=== PATIENT | female | born 1985 | race Caucasian/White ===

== ENCOUNTER 2020-08-05 11:42 | Emergency (ER) | payer MEDICAID ==
[~2020-08-05] VITALS: Ht 160 cm; Wt 114.9 kg
[~2020-08-05 11:42] MED LIST: OLAN2.5T3 PO
[2020-08-05 11:48] VITALS: BP 117/67
[2020-08-05] MEDS ORDERED: bacitracin 15gm ointment TP ONE (12:10)
== END 2020-08-05 12:14 | disposition home or self-care (01) ==
LOC: ER 11:42
DX: S20.312A Abrasion of left front wall of thorax, initial encounter (principal); Z79.899 Other long term (current) drug therapy; V87.7XXA Person injured in collision between other specified motor vehicles (traffic), initial encounter; Y93.89 Activity, other specified; Y92.488 Other paved roadways as the place of occurrence of the external cause; Y99.8 Other external cause status
CPT/HCPCS: 99283

== ENCOUNTER 2025-03-25 16:17 | Emergency (ER) | payer MEDICAID ==
[~2025-03-25] VITALS: Ht 160 cm; Wt 132.6 kg
[2025-03-25 16:28] VITALS: BP 175/105
[2025-03-25] MEDS ORDERED: BENZ1TAB78 PO ×2 (16:48→16:52)
--- NOTE | 2025-03-25 16:53 | ELECTROCARDIOGRAPH REPORT ---
[facility] Test Date: 2025-03-25 Test Time: 16:51:27 Pat Name: AMANDA VINCENT Department: EMERGENCY ROOM Patient ID: [facility]-[id number] Room: Gender: F Hospitalist Program Director: FAITH : 1985 Requested By: ANYI LARES Order Number: [id number] Reading MD: Dr. David Lainez Measurements Intervals [place] Rate: 127 P: 4 UT: 155 QRS: -22 QRSD: 87 T: 8 QT: 292 QTc: 425 Interpretive Statements Sinus tachycardia Borderline left axis deviation Low voltage, precordial leads Electronically Signed On 03-25-2025 18:23:[address] David Lainez Please click the below link to view image of tracing.
[2025-03-25] MEDS: benztropine 1mg tablet PO ONE (16:55)
--- NOTE | 2025-03-25 16:58 | Physician Documentation ---
HPI ~ General Chief Complaint: Medication Refill Stated Complaint: MED REFILL Time Seen by MD: 16:40 OK to notify your PCP?: Yes Primary Medical Doctor: [email or web address] Source: patient Mode of Arrival: POV Exam Limitations: no limitations History of Present Illness HPI Comments Requesting refill of benztropine. She takes it 1 mg twice daily. Presents with her mother. No medical concerns for today. Reports is feeling anxious from the car ride. Medication Reconciliation Allergies: Coded Allergies: No Known Allergies (Unverified , 03/25/25) Scheduled Benztropine Mesylate (Benztropine Mesylate), 1 TAB PO BID Olanzapine* (Zyprexa*), 5 MG PO DAILY, (Reported) Past Medical History Past Medical History: *PSYCH* Past Surgical History: no surgical history Alcohol Use: None Drug Use: none Review of Systems All Other Systems at this time: Reviewed and Negative Physical Exam Physical Exam Vital Signs: RN Vital Signs have been reviewed: Yes, Temperature: 98.9, Source: Temporal, Heart Rate: 150, Respiratory Rate: 18, BP: 175/105, Pulse Oximetry: 94, Weight: 132.600 Pulse Oximetry Reflects: adequate oxygenation Physical Exam General: Alert, no distress. HEENT: No injection, moist mucous membranes. Neck: Full range of motion. Respiratory: No respiratory distress, equal chest rise and fall. Chest: No accessory muscle use. Cardiovascular: Regular rate and rhythm. Gastrointestinal: Nondistended. Extremities: Normal range of motion, no deformity. Neurologic: Oriented x4. Psychiatric: Normal mood and affect. Skin: Normal color, warm and dry. Progress Results/Orders Reviewed/noted all lab results: Yes Results/Orders Completed Orders - ZEINA URIARTE [employer] Stat Ekg (03/25/25 16:45) Benztropine 1mg Tablet (Cogentin 1mg Tab (03/25/25 16:50) Medications Received in ER Medications (Trade) Dose Ordered Sig/Marleny Route PRN Reason Start Time Stop Time Status Last Admin Dose Admin (Cogentin 1mg tablet) 1 mg ONCE ONCE PO 03/25/25 16:50 03/25/25 16:51 DC 03/25/25 16:55 1 MG Vital Signs 03/25/25 16:28 Temp 98.9 Pulse 150 Resp 18 B/P (MAP) 175/105 Pulse Ox 94 EKG/XRAY/CT/US/VASC/MRI EKG : Additional Comment Electrocardiogram: as interpreted by me; sinus tachycardia, no acute ischemia, normal intervals, no pre-excitation pattern. Rate: 127 Medical Decision Making Additional information obtaine: old records Findings Patient had elevated heart rate in triage. Mother states it is due to her being in the car and feel anxious to come to the hospital. She denies any chest pain, shortness of breath or cardiac symptoms. We did an EKG which revealed sinus tachycardia rate 127, no ST-elevation or ischemia. She has been a refill of the benztropine sent to the pharmacy. I sent this prescription to the pharmacy and gave her a dose while she was here in the department has a pharmacy maybe closed by the time she is discharged. Differential Dx:Considerations: Include: Adverse circumstances, Economic, Medical services unavail., Medication refill Departure Disposition: HOME / SELF CARE / HOMELESS Impression: Primary Impression: General medical exam Additional Impression: Encounter for medication refill Condition: Stable Discharge Instructions: Medicine Refill at the Emergency Department Additional Instructions: With her primary care provider in the next week. Return back here for any new or worsening symptoms. Referrals: NO PRIMARY CARE PROVIDER (PCP) Prescriptions Benztropine Mesylate (Benztropine Mesylate) 1 Mg Tablet 1 TAB PO BID for 30 Days, #60 TAB Prov: ZEINA URIARTE 03/25/25 Education Educated: Patient Educated regarding: diagnosis, treatment, prognosis, need for follow up Additional Comment Medical Screen Exam This patient recieved a medical screening examination. After reviewing the individual's medical complaints with presenting symptoms and performing an appropriate physical examination, it was determined that no immediate life- threatening emergency medical condition is present. This individual is also not a women having contractions. Signature Scribe Signature: . Attestation: Scribed for Zeina Uriarte by Zeina Crandall NP . 03/25/25 16:55 Parts of this note were created using [employer] voice recognition software program. While efforts were made to correct any mistakes made by this voice recognition software program, nonsensical phrases may remain in this note. In addition, there may be errors and syntax, grammar, content and spelling. ZEINA URIARTE Mar 25, 2025 16:58
[2025-03-25 17:09] VITALS: PULSE 127; RESP 16; TEMP 98.9; O2SAT 99
== END 2025-03-25 17:09 | disposition home or self-care (01) ==
LOC: ER 16:18
DX: Z00.00 Encounter for general adult medical examination without abnormal findings (principal); Z76.0 Encounter for issue of repeat prescription; I49.9 Cardiac arrhythmia, unspecified; Z79.899 Other long term (current) drug therapy
CPT/HCPCS: 93005; 99283